=== PATIENT | female | born 1960 | race Caucasian/White ===

== ENCOUNTER 2019-01-28 15:07 | Day surgery (SDC) | payer BC ==
[2019-01-28] MEDS ORDERED: ceFAZolin 1 GM ADVAN(*) 1 GM in NS 0.9% 50 ML* 50 ML IVPB ONE (15:23)
[2019-01-28] MEDS ORDERED: NS 0.9% 1000 ML** 1,000 ML IV ONE (15:23)
[2019-01-28] MEDS ORDERED: Lidocaine 1%* 5 ML VIAL INJ ONE (15:24)
--- NOTE | 2019-01-28 15:25 | ED ---
Upper Extremity Pain - HPI Summary HPI Summary: Pt. is a 58 y.o female who presents to the ER for an injury to right middle finger of hand that occurred just prior to arrival. Pt. states she was using a wood inspector packer glass container when her finger accidentally got caught. Pt. states last tetanus immunization was within 1-2 years. Past hx of HTN. Sxs are moderate in severity. No other injuries were sustained. 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 - History of Current Complaint Chief Complaint: EDExtremityUpper Stated Complaint: "RIGHT HAND LACERATION" Time Seen by Provider: 01/28/19 15:14 Hx Obtained From: Patient - Allergies/Home Medications Allergies/Adverse Reactions: Allergies Allergy/AdvReac Type Severity Reaction Status Date / Time No Known Allergies Allergy Verified 01/28/19 15:13 Home Medications: Home Medications Lisinopril 10 mg PO DAILY 01/28/19 [History Confirmed 01/28/19] PMH/Surg Hx/FS Hx/Imm Hx Previously Healthy: Yes Infectious Disease History: No Infectious Disease History: Denies: Traveled Outside the [place] in Last 30 Days - Family History Known Family History: Positive: Non-Contributory - Social History Occupation: Employed Full-time Lives: With Family Alcohol Use: None Substance Use Type: Reports: None Smoking Status (MU): Heavy Every Day Tobacco Smoker Review of Systems Positive: Other - amputatio to right 3rd digit of hand Neurological: Negative All Other Systems Reviewed And Are Negative: Yes Physical Exam Triage Information Reviewed: Yes Vital Signs On Initial Exam: Initial Vitals Temp Pulse Resp BP Pulse Ox 98.5 F 85 19 92/67 96 01/28/19 15:09 01/28/19 15:09 01/28/19 15:09 01/28/19 15:09 01/28/19 15:09 Vital Signs Reviewed: Yes Appearance: Positive: Well-Appearing - Pt. sitting up in bed in NAD. present. Skin: Positive: Warm, Dry Head/Face: Positive: Normal Head/Face Inspection Eyes: Positive: Normal, EOMI Neck: Positive: Supple Musculoskeletal: Positive: Other - Amputation to right middle finger of hand at the DIP joint. There is distal skin present on the palmar aspect that is pink. Wound is extremely dirty and covered in saw dust and dirt. No active bleeding. Neurological: Positive: Normal, CN Intact II-III Psychiatric: Positive: Affect/Mood Appropriate Diagnostics - Vital Signs Vital Signs Temp Pulse Resp BP Pulse Ox 01/28/19 15:09 98.5 F 85 19 92/67 96 - Laboratory Lab Statement: Any lab studies that have been ordered have been reviewed, and results considered in the medical decision making process. Course/Dx - Course Course Of Treatment: Patient presenting with distal amputation of third finger of the right hand. Wound is very contaminated. IV was placed and patient given a dose of IV Ancef and morphine. Patient's pressure was initially a little low and IV fluids were started. On-call orthopedics was consulted, Dr. Mejía, who was not comfortable taking the case due to limited experience with hands and recommended contacting Dr. Baptiste. Case discussed with Dr. Baptiste and he will begin to see the patient. Pt. to OR with Dr. Baptiste for washout and repair. - Diagnoses Differential Diagnosis/HQI/PQRI: Positive: Fracture (Closed) Provider Diagnoses: Finger amputation, traumatic Discharge - Sign-Out/Discharge Documenting (check all that apply): Patient Departure Patient Received Moderate/Deep Sedation with Procedure: No - Discharge Plan Condition: Stable Disposition: ADMITTED TO [facility] - Billing Disposition and Condition Condition: STABLE Disposition: Admitted to [facility]
[2019-01-28] MEDS ORDERED: Morphine INJ* 2 MG/ML 1 ML SYRINGE (TWO MG - NEW SYRINGE VERSION) IV ONE (15:48)
[2019-01-28] MEDS ORDERED: Ondansetron INJ* 2 MG/ML VIAL IV ONE (15:53)
[2019-01-28] MEDS ORDERED: Morphine 4 MG/ML VIAL (1 ml) 4 MG/ML VIAL IV ONE (17:07)
[2019-01-28] MEDS ORDERED: Famotidine IV* 10 MG/ML 2 ML (20 mg) IV ONE (17:11)
[2019-01-28] MEDS ORDERED: Famotidine IV* 10 MG/ML 2 ML (20 mg) ONE (17:19)
[2019-01-28] MEDS ORDERED: Tetan/Diph/Pertus SYR(Tdap)* 0.5 ML SYR(BOOSTRIX) use SYR IM ONE (17:29)
[2019-01-28] MEDS ORDERED: fentaNYL* 50 MCG/ML 2 ML VIAL (100 MCG VIAL) ONE (17:56)
[2019-01-28] MEDS ORDERED: Midazolam* 1 MG/ML 5 ML VIAL (5 MG) ONE (17:57)
[2019-01-28] MEDS ORDERED: KETAMINE HCL* 50 MG/ML 10 ML VIAL ONE (17:57)
[2019-01-28] MEDS ORDERED: ceFAZolin 1 GM ADVAN(*) 1 GM ADDV.VIAL IVPB ONE (18:04)
--- NOTE | 2019-01-28 18:04 | HP ---
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 this afternoon, 3 hours ago. The patient was at home with her . She was working with a wood agriculture science teacher. She put her right hand in towards the wood agriculture science teacher and it ground up the tip of her right middle finger. The patient had bleeding and clear laceration. The patient came to the emergency room. I was called and was happy to evaluate the patient. The patient last ate at 2:45 a.m. this morning, one apple. Her last drink was a sip of water at approximately 8 a.m. this morning. PAST MEDICAL HISTORY: Hypertension. PAST SURGICAL HISTORY: Tubal ligation, multiple screening colonoscopies. MEDICATIONS: Lisinopril. ALLERGIES: No known drug allergies FAMILY HISTORY: Noncontributory. SOCIAL HISTORY: The patient lives with her . 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 The patient's primary care provider is Dr. Kerr of [place]. She went to Dr. Kerr for a physical, routine, last month. The patient smokes cigarette, 1 pack per day. REVIEW OF SYSTEMS: No recent headache, chest pain, heart palpitations, shortness of breath. No abdominal pain or vomiting. No numbness or tingling. Patient does admit to some nausea both after her initial injury and while in the emergency department awaiting for care. PHYSICAL EXAMINATION GENERAL: No acute distress, nontoxic appearing. Alert and oriented, appropriate mood and affect, appropriate dress and hygiene, patient lying on a stretcher in the emergency room. VITAL SIGNS: Most recent heart rate 59 at 5 p.m. with an oxygen saturation of 100%. Most recent blood pressure at 4:51 p.m. was 131/67. Most recent temperature at 3:09 p.m. was 98.5 degrees Fahrenheit temporal. EXTREMITIES: Patient was soaking her right hand in saline. Evaluation of the right middle finger shows an absent distal phalanx. There is a sleeve of skin of the volar tip, still present and hanging on to the level of the amputation at the bone which is just proximal to the DIP joint. This skin is not as well perfused as the other fingertips. The discoloration was noticeably less pink than of the other fingertips. There was some clear dirt contamination of the wound. Visible extensor tendon cut. Palpable bone fragments in the wound. IMAGING: X-rays of the right middle finger were reviewed by me. There were at least 2 views. They show a traumatic amputation just proximal to the DIP joint through the head of the middle phalanx. There are a couple small fragments of bone just distal to the main traumatic amputation site. Visible in the lateral x-ray view is the distal volar sleeve of subcutaneous tissue and skin. ASSESSMENT: 1. Right middle finger traumatic laceration and amputation. PLAN: 1. Due to the contamination of this wound with dirt and the desire for improved visualization of all structures, treatment in the operating room is more appropriate than in the emergency department. 2. Spoke to the patient and her about the lesser appearance of the distal sleeve of tissue, it looking slightly white already. This makes me think that at least some of this will need to be removed and that some additional bone will need to be resected so that this patient can have a nice primary closure with the best possible chance of healing, despite her smoking. 3. To the operating room for irrigation and debridement right middle fingertip and amputation at the level of the middle phalanx. 4. The patient will continue n.p.o. So far in the emergency room she has received IV fluids, Ancef and morphine. I will ask for a tetanus injection. 5. I will discuss risks and potential complications of surgery including bleeding, infection, nerve or blood vessel injury, need for revision amputation , wound healing problems, nerve pain, causalgia, quadrigia. [id number]/[facility] #: [id number] HUYEN
[2019-01-28] MEDS ORDERED: Morphine 4 MG/ML VIAL (1 ml) 4 MG/ML VIAL IV PRN (18:48)
[2019-01-28] MEDS ORDERED: Naloxone* 0.4 MG/ML 1 ML VIAL IV PRN (18:48)
[2019-01-28] MEDS ORDERED: DiMENhydriNATE IV* 50 MG/ML VIAL IV PUSH PRN (18:48)
[2019-01-28] MEDS ORDERED: PROCHLORPERAZINE INJ 5 MG/ML 2 ML VIAL IV PRN (18:48)
[2019-01-28] MEDS ORDERED: fentaNYL* 50 MCG/ML 2 ML VIAL (100 MCG VIAL) IV PRN (18:48)
[2019-01-28] MEDS ORDERED: Bupivacaine 0.5% SDV PF* 30ML VIAL ONE (19:06)
[2019-01-28] MEDS ORDERED: Lidocaine 2% PF * 5 ML VIAL ONE (19:21)
[2019-01-28] MEDS ORDERED: Propofol* 10 MG/ML 20 ML BTL ONE (19:21)
[2019-01-28] MEDS ORDERED: Ketorolac INJ* 30 MG/ML 1 ML VIAL ONE (19:21)
[2019-01-28] MEDS ORDERED: Phenylephrine 10 MG/ML VIAL* 1 ML VIAL ONE (19:21)
[2019-01-28] MEDS ORDERED: EPHEDrine (Pressors)* 50 MG/ML VIAL ONE (19:21)
[2019-01-28] MEDS ORDERED: Dexamethasone IV* 4 MG/ML 1 ML (4 MG) ONE (19:21)
[2019-01-28] MEDS ORDERED: Flumazenil* 0.1 MG/ML 5 ML MDV ONE (19:24)
[2019-01-28 20:27] VITALS: BP 142/73
[2019-01-28] MEDS ORDERED: Ondansetron INJ* 2 MG/ML VIAL ONE (20:43)
[2019-01-28] MEDS ORDERED: PROCHLORPERAZINE INJ 5 MG/ML 2 ML VIAL ONE (20:45)
[2019-01-28] MEDS ORDERED: Scopolamine 1.5 mg* PATCH ONE (20:55)
--- NOTE | 2019-01-30 00:23 | OP ---
DATE OF OPERATION: 01/28/19 [facility] DATE OF : 60 SURGEON: Dr. Shon Baptiste. PRINTING EQUIPMENT MECHANIC APPRENTICE: None. ANESTHESIOLOGIST: Dr. Josef Quintero. ANESTHESIA: General anesthesia, local anesthesia with 7 cc of Marcaine placed in a digital nerve block and a dorsal subcutaneous block at the conclusion of the case. PRE-OP DIAGNOSIS: Right long or middle finger traumatic laceration and amputation. POST-OP DIAGNOSIS: Right long or middle finger traumatic laceration and amputation. OPERATIVE PROCEDURES: 1. Right long finger secondary amputation at the level of the middle phalanx, including removal of bone, skin, subcutaneous tissue, muscle. 2. Right middle finger irrigation and debridement, removal of foreign material. ANTIBIOTICS: Ancef 1 g IV. The patient had previously received Ancef in the emergency room, so I gave a dose of only 1 g. IV FLUIDS: See anesthesia note. TNTY-DM-[id number] TIME: 47 minutes. SPECIMEN: Fingertip. IMPLANTS: None. COMPLICATIONS: None. ESTIMATED BLOOD LOSS: Minimal. TOURNIQUET TIME: I placed a tourniquet made of a strip of Esmarch at the base of the long finger for less than 5 minutes during the case. 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 this afternoon. The patient's finger got stuck in the machine. She was brought to the emergency room. In the emergency room, she was given a dose of Ancef. I asked that her tetanus be updated. I was called in to see her. It was demonstrated that the amputation had been through the level of the head of the middle phalanx of the long finger. Physical exam revealed a long sleeve of skin and subcutaneous tissue present volarly, but that the skin quality and coloration showed that this was poorly vascular. It was pretty narrow at one point, bridging to the remainder of the fingertip of the skin and subcutaneous tissue. I spoke in the emergency room to the patient and her at some length about the need to do an irrigation and debridement to remove dirt from her wound. As well, her wound would benefit from closure. I did not think that most of the fingertip, barely holding on, would survive. It did not look fully vascular based on its coloration and lack of nice capillary refill. I discussed the desire to have a primary closure and to have a tension-free closure to best enable healing, especially in the content of cigarette smoking. This would likely involve removal of more bone of the middle phalanx to allow the closure of healthy appearing skin and subcutaneous tissue in a tension-free fashion distally. The patient and her agreed and thanked me. Discussed risks and potential complications of surgery including bleeding, infection, nerve or blood vessel injury, need for revision amputation, wound healing problems, nerve pain. DESCRIPTION OF PROCEDURE: In preoperative holding, patient signed a written consent. Operative extremity was marked preoperatively. Patient was taken back to the operating room. Patient was sedated and intubated. Hand table was applied. The right long finger was examined by me. I noted that there was no break in the skin, but there was an area of some concern, where it looks like some pressure had been applied and some internal damage possibly done, overlying the base of the middle phalanx. There was some slight [id number] along the dorsal aspect of the finger, I believe on the dorsal radial side. The coloration of the skin looked normal up to the level of loss of bone, but distal to that including the entire volar distal flap looked poorly pink. It looked white or even more off color, grayish. The right upper extremity was prepped and draped. Surgical time-out was performed. I brought in cystoscopy tubing and irrigated with multiple liters of fluid. This flushed out some dirt in the wound. I also used an Adson to deliver out of the wound several larger flecks of dirt after my initial irrigation. I next debrided the wound. There were several small comminuted chunks of bone that I removed with sharp dissection. These had been visible on x-ray and appreciable by palpation. I visualized more closely with my loupes on the quality of the distal flap of skin and subcutaneous tissue. I felt that this would definitely not heal and so removed it with sharp dissection. There was little to no bleeding where it was cut. At this point, when I went to dissect more proximally, I initially used a tourniquet around the base of the finger, but then I stopped using it as I did not want to compromise blood flow and did not think it was of much utility. I looked at how the wound might come together after I had removed any skin and subcutaneous tissue that looked possibly unhealthy, that would not heal. I decided to debride more bone of the middle phalanx. I cut it back, perhaps 1 to 2 cm, using a rongeur and using a sharp bone cutter. I brought a mini C-arm in and confirmed good symmetric appearance of the middle phalanx, with an amputation about the shaft, midshaft, or mid to distal shaft. I thought that the closure would be good. Removed a little bit more skin. Irrigated it once again for a total of 6 L of irrigation. I next closed the wound with simple stitches using nylon 4-0 and Monocryl 4-0 sutures. Placed Adaptic dressing followed by 2x2s, followed by Kerlix, followed by Coban. I applied some local anesthesia, first a flexor tendon sheath block and then placed a dorsal subcutaneous at the base of the finger. This used a total of 7 cc of Marcaine. The patient was transferred to the PACU. DISPOSITION: Patient was given wound care instructions. She is to follow up with me on approximately 02/05/19 or 02/06/19 in clinic. She was given a short course of Keflex antibiotic and a prescription for tramadol pain medication. She has my cell phone number and can call with any questions or problems. [id number]/[facility] #: [id number] HUYEN
== END 2019-01-28 17:05 | disposition home or self-care (01) ==
LOC: ED 15:07 → OR 17:05
PROVIDERS: ATTEND Orthopaedic Surgery
DX: S68.622A Partial traumatic transphalangeal amputation of right middle finger, initial encounter (principal); Z72.0 Tobacco use; I10 Essential (primary) hypertension; W31.89XA Contact with other specified machinery, initial encounter; Y92.9 Unspecified place or not applicable
CPT/HCPCS: 73140; 76000; 88302; 90715; 99285; A9270-GY; J0690; J0780; J1100; J1885; J2250; J2270; J2405; J2704; J3010